=== PATIENT | male | born 1950 | race Asian ===

== ENCOUNTER 2018-02-11 12:15 | Outpatient (CLI) | payer MEDICARE, MEDICAID ==
[~2018-02-11] VITALS: Ht 177.8 cm; Wt 89.8 kg
[~2018-02-11 12:15] MED LIST: ACET-1697 PO; AMLO5TAB2 PO; ASPI-266 PO; HTN MED; HYDR-3876 PO; LISI10TA2 PO; OXYC-12 PO; PRM25T PO
[2018-02-11] MEDS ORDERED: LOSA25TA6 PO (12:27)
[2018-02-11] MEDS ORDERED: TAMS0.4C2 PO (12:27)
== END 2018-02-11 12:35 | disposition home or self-care (01) ==
LOC: PREOP 12:15
PROVIDERS: ATTEND Surgery
DX: Z01.818 Encounter for other preprocedural examination (principal)

== ENCOUNTER 2018-02-17 08:41 | Day surgery (SDC) | payer MEDICARE, MEDICAID ==
[~2018-02-17] VITALS: Ht 177.8 cm; Wt 89.8 kg
[~2018-02-17 08:41] MED LIST changes: +LOSA25TA6 PO; +TAMS0.4C2 PO
[2018-02-17] MEDS ORDERED: NS IV 500 ML 500 ML IV PRN (08:42)
[2018-02-17] MEDS ORDERED: fentaNYL INJECTION 100 MCG/2 ML AMP IVP ONE (08:45)
[2018-02-17] MEDS ORDERED: MIDAZOLAM 2 MG/2 ML (VERSED) VIAL IVP ONE (08:45)
--- OUTSIDE RECORDS SUMMARY | 2018-02-17 08:45 | XMS REPORT | CCD ---
Author Author Kallie Sierra Organization Kallie Sierra MD, [facility] Address [address] [place] [address] Phone Care Team Providers Care Case Packer And Sealer Name Role Phone PP Unavailable CCM Unavailable Summary Purpose Interface Exchange Insurance Providers Payer name Policy type / Coverage type Covered alliance party ID Effective Begin Date Effective End Date WPS Medicare Part B Medicare Part B [id number] 2017 Unknown [facility] Medicare Part B [id number] Unknown Family history Mother Diagnosis Age At Onset Hypertension Unknown Social History Social History Element Codes Description Effective Dates Alcohol history SNOMED CT: 527542676 Never drinks alcohol 01/07/2018 Marital status Unknown Alice Dumont 11/25/2017 Number of children Unknown 3 11/25/2017 Employment Unknown Currently employed 11/25/2017 Allergies, Adverse Reactions, Alerts Substance Reaction Codes Entered Date Inactivated Date Status SULFA (SULFONAMIDES) Unknown 11/25/2017 No Inactive Date Active Past Medical History Illness Codes Condition Status Onset Date Resolved Date Encounter for general adult medical examination without abnormal findings ICD-9: V70.0 ICD-10: Z00.00 Active 01/07/2018 Unknown Encounter for immunization ICD-9: V03.82 ICD-10: Z23 Active 01/07/2018 Unknown Abnormal results of liver function studies ICD-9: 794.8 ICD-10: R94.5 Active 01/02/2018 Unknown Acute bronchitis due to other specified organisms ICD-9: 466.0 ICD-10: J20.8 Active 11/25/2017 Unknown Cough ICD-9: 786.2 ICD-10: R05 Active 11/25/2017 Unknown Cramp and spasm ICD-9 : 729.82 ICD-10: R25.2 Active 12/31/2017 Unknown Essential (primary) hypertension ICD-9: 401.1 ICD-10: I10 Active 11/25/2017 Unknown Gastro-esophageal reflux disease without esophagitis ICD-9: 530.81 ICD-10: K21.9 Active 11/25/2017 Unknown Muscle weakness (generalized) ICD-9: 728.87 ICD-10: M62.81 Active 11/25/2017 Unknown Problems Condition Codes Effective Dates Condition Status Encounter for general adult medical examination without abnormal findings ICD-9: V70.0 ICD-10: Z00.00 01/07/2018 Active Encounter for immunization ICD-9: V03.82 ICD-10: Z23 01/07/2018 Active Abnormal results of liver function studies ICD-9: 794.8 ICD-10: R94.5 01/02/2018 Active Acute bronchitis due to other specified organisms ICD-9: 466.0 ICD-10: J20.8 11/25/2017 Active Cough ICD-9: 786.2 ICD-10: R05 11/25/2017 Active Cramp and spasm ICD-9 : 729.82 ICD-10: R25.2 12/31/2017 Active Essential (primary) hypertension ICD-9: 401.1 ICD-10: I10 11/25/2017 Active Gastro-esophageal reflux disease without esophagitis ICD-9: 530.81 ICD-10: K21.9 11/25/2017 Active Muscle weakness (generalized) ICD-9: 728.87 ICD-10: M62.81 11/25/2017 Active Medications Medication Codes Instructions Start Date Stop Date Status Fill Instructions allopurinol 300 mg tablet RxNorm: 290989 1 Tablet(s) PO QW -BIW 11/25/2017 No Stop Date Active losartan 25 mg tablet RxNorm: 473137 1 Tablet(s) PO QPM 201706/22/2018 Active amoxicillin 500 mg-potassium clavulanate 125 mg tablet RxNorm: 740505 1 Tablet(s) PO TID 11/25/2017 12/01/2017 Inactive Cardura 4 mg tablet RxNorm: 578373 1 Tablet(s) PO QW -BIW No Start Date Active tamsulosin 0.4 mg capsule RxNorm: 889355 1 Capsule(s) PO QW -BIW No Start Date Active allopurinol 300 mg tablet RxNorm: 425815 1 Tablet(s) PO daily No Start Date 11/24/2017 Inactive lisinopril 10 mg tablet RxNorm: 588708 1 Tablet(s) PO daily No Start Date 11/24/2017 Inactive Medication Administered No Medication Administered data Immunizations Vaccine Codes Date Status Pneumococcal (Adult) CVX: 133 01/07/2018 completed Assessments Condition Codes Effective Dates Encounter for general adult medical examination without abnormal findings ICD-10: Z00.00 ICD-9: V70.0 01/07/2018 Encounter for immunization ICD-10: Z23 ICD-9: V03.82 01/07/2018 Abnormal results of liver function studies ICD-10: R94.5 ICD-9: 794.8 01/02/2018 Cramp and spasm ICD-10: R25.2 ICD-9: 729.82 12/31/2017 Essential (primary) hypertension ICD-10: I10 ICD-9: 401.1 12/31/2017 Gastro-esophageal reflux disease without esophagitis ICD-10 : K21.9 ICD-9: 530.81 11/25/2017 Acute bronchitis due to other specified organisms ICD-10: J20.8 ICD-9: 466.0 11/25/2017 Cough ICD-10: R05 ICD-9: 786.2 11/25/2017 Muscle weakness (generalized) ICD-10: M62.81 ICD-9: 728.87 11/25/2017 Reason For Visit Reason For Visit Effective Dates Notes Annual Medicare Wellness Exam 01/07/2018 hypertension 12/31/2017 he reports lower leg cramps at night hypertension 11/25/2017 Results Observation Observation Code Item Item Code Result Date Hepatitis Panel (Abc) 67737 HEPATITIS B SURFACE AG . 02/2018 Hepatitis Panel (Abc) 37427 HEPATITIS B SURFACE AG NEGATIVE 01/03/2018 Hepatitis Panel (Abc) 86009 HEPATITIS B CORE AB, IGM . Hepatitis Panel (Abc) 03430 HEPATITIS B CORE AB, IGM NEGATIVE 01/03/2018 Hepatitis Panel (Abc) 27661 HEPATITIS A AB, IGM . 2017 Hepatitis Panel (Abc) 21401 HEPATITIS A AB, IGM NEGATIVE 02/2018 Hepatitis Panel (Abc) 87728 HEPATITIS C ANTIBODY . 2017 Hepatitis Panel (Abc) 18084 HEPATITIS C ANTIBODY NEGATIVE 02/2018 Cbc With Differential Ord2 WBC 5.44 K/ul 01/01/2018 Cbc With Differential Ord2 RBC 4.92 M/ul 01/01/2018 Cbc With Differential Ord2 HGB 15.2 g/dl 01/01/2018 Cbc With Differential Ord2 Neut% 51.1 % 01/01/2018 Cbc With Differential Ord2 HCT 44.3 % 01/01/2018 Cbc With Differential Ord2 MCV 90.0 fl 01/01/2018 Cbc With Differential Ord2 Lymph% 34.7 % 01/01/2018 Cbc With Differential Ord2 MCH 30.9 pg 01/01/2018 Cbc With Differential Ord2 [place]% 10.7 % 01/01/2018 Cbc With Differential Ord2 MCHC 34.3 pg 01/01/2018 Cbc With Differential Ord2 Eos% 2.9 % 01/01/2018 Cbc With Differential Ord2 PLT 237 K/ul 01/01/2018 Cbc With Differential Ord2 Baso% 0.6 % 01/01/2018 Cbc With Differential Ord2 RDW 14.1 % 01/01/2018 Cbc With Differential Ord2 Neut ABS# 2.78 K/ul 01/01/2018 Cbc With Differential Ord2 Lymph ABS# 1.89 K/ul 01/01/2018 Cbc With Differential Ord2 [place] ABS# 0.6 K/ul 01/01/2018 Cbc With Differential Ord2 Eos ABS# 0.2 K/ul 01/01/2018 Cbc With Differential Ord2 Baso ABS# 0.0 K/ul 01/01/2018 Lipid Ord30 CHOL 203 mg/dL 01/01/2018 Lipid Ord30 HDL 46.0 mg/dl 01/01/2018 Lipid Ord30 TRIG 216 mg/dL 01/01/2018 Lipid Ord30 LDL 114 mg/dL 01/01/2018 Lipid Ord30 C/HDL 4.4 Ratio 01/01/2018 Comp Metabolic Glp679 NA 141 mEq/L 01/01/2018 Comp Metabolic Xpc368 K 4.6 mEq/L 01/01/2018 Comp Metabolic Tqh926 CL 107 mEq/L 01/01/2018 Comp Metabolic Oow323 CO2 26.0 mEq/L 01/01/2018 Comp Metabolic Gvq157 ANION GAP 13 01/01/2018 Comp Metabolic Hmg536 GLUCOSE 123 mg/dL 01/01/2018 Comp Metabolic Otb044 Creat 1.0 mg/dL 01/01/2018 Comp Metabolic Vpq771 eGFR 76 ml/min/1.73m2 01/01/2018 Comp Metabolic Bga768 BUN 20 mg/dL 01/01/2018 Comp Metabolic Jyt470 B/C Ratio 19.2 Ratio 01/01/2018 Comp Metabolic Xka445 CALCIUM 9.8 mg/dL 01/01/2018 Comp Metabolic Gmi431 ALK PHOS 59 U/L 01/01/2018 Comp Metabolic Ahg233 AST(SGOT) 49 U/L 01/01/2018 Comp Metabolic Fyx125 ALT(SGPT) 69 U/L 01/01/2018 Comp Metabolic Bep734 BILI T 0.6 mg/dL 01/01/2018 Comp Metabolic Jtf245 ALBUMIN 4.3 g/dL 01/01/2018 Comp Metabolic Crr659 TPRO 7.4 g/dL 01/01/2018 Comp Metabolic Ylo843 GLOB 3.1 g/dL 01/01/2018 Comp Metabolic Ybh267 A/G Ratio 1.4 Ratio 01/01/2018 Comp Metabolic Yec748 Osmo 285 mOsmo 01/01/2018 Tsh Ord6 TSH (3rd IS) 1.74 uIU/mL 01/01/2018 Total Psa Ord10 PSA 0.61 ng/mL 01/01/2018 Review of Systems System Result Effective Dates Constitutional No recent illness 2017 Constitutional No chills 01/07/2018 Constitutional No fatigue 01/07/2018 Constitutional No fever 01/07/2018 Constitutional No insomnia 01/07/2018 Constitutional No malaise 01/07/2018 Eyes No vision change 01/07/2018 Ears/Nose/Throat/Neck No dizziness 2017 Ears/Nose/Throat/Neck No dysphagia 2017 Ears/Nose/Throat/Neck No headache 2017 Ears/Nose/Throat/Neck No nasal allergies 01/07/2018 Ears/Nose/Throat/Neck No sore throat Ears/Nose/Throat/Neck No sinus congestion 01/07/2018 Cardiovascular No dyspnea 01/07/2018 Cardiovascular No edema 01/07/2018 Cardiovascular No exercise intolerance Cardiovascular No fatigue 01/07/2018 Respiratory No chest tightness 2017 Respiratory No dyspnea 01/07/2018 Gastrointestinal No abdominal pain 2017 Gastrointestinal No constipation 2017 Gastrointestinal No diarrhea 01/07/2018 Gastrointestinal No nausea 01/07/2018 Gastrointestinal No vomiting 01/07/2018 Genitourinary/Nephrology No dysuria 01/07 Genitourinary/Nephrology No nocturia Genitourinary/Nephrology No urinary incontinence 01/07/2018 Musculoskeletal No stiffness 01/07/2018 Musculoskeletal No swelling 01/07/2018 Musculoskeletal No muscle weakness 2017 Musculoskeletal myalgias 01/07/2018 Dermatologic No rash 01/07/2018 Dermatologic No sores 01/07/2018 Neurologic No dizziness 01/07/2018 Neurologic No headache 01/07/2018 Neurologic No neck pain 01/07/2018 Neurologic No syncope 01/07/2018 Psychiatric No anxiety 01/07/2018 Psychiatric No depression 01/07/2018 Constitutional No anorexia 01/07/2018 Constitutional No night sweats 2017 Constitutional No diaphoresis 01/07/2018 Constitutional No weight loss 01/07/2018 Constitutional No weight gain 01/07/2018 Constitutional recent illness 12/31/2017 Constitutional No chills 12/31/2017 Constitutional No fatigue 12/31/2017 Constitutional No fever 12/31/2017 Constitutional No insomnia 12/31/2017 Constitutional No malaise 12/31/2017 Eyes No vision change 12/31/2017 Ears/Nose/Throat/Neck No dizziness 2017 Ears/Nose/Throat/Neck No dysphagia 2017 Ears/Nose/Throat/Neck No headache 2017 Ears/Nose/Throat/Neck No nasal allergies 12/31/2017 Ears/Nose/Throat/Neck No sore throat 11/2017 Ears/Nose/Throat/Neck No sinus congestion 12/31/2017 Cardiovascular No dyspnea 12/31/2017 Cardiovascular No edema 12/31/2017 Cardiovascular No exercise intolerance Cardiovascular No fatigue 12/31/2017 Respiratory No chest tightness 2017 Respiratory cough 12/31/2017 Respiratory No dyspnea 12/31/2017 Gastrointestinal No abdominal pain 2017 Gastrointestinal No constipation 2017 Gastrointestinal No diarrhea 12/31/2017 Gastrointestinal gastroesophageal reflux 12/31/2017 Gastrointestinal No nausea 12/31/2017 Gastrointestinal No vomiting 12/31/2017 Genitourinary/Nephrology No dysuria 12/31 Genitourinary/Nephrology No nocturia 11/2017 Genitourinary/Nephrology No urinary incontinence 12/31/2017 Musculoskeletal No stiffness 12/31/2017 Musculoskeletal No swelling 12/31/2017 Musculoskeletal No muscle weakness 2017 Musculoskeletal myalgias 12/31/2017 Dermatologic No rash 12/31/2017 Dermatologic No sores 12/31/2017 Neurologic No dizziness 12/31/2017 Neurologic No headache 12/31/2017 Neurologic No neck pain 12/31/2017 Neurologic No syncope 12/31/2017 Psychiatric No anxiety 12/31/2017 Psychiatric No depression 12/31/2017 Neurologic memory loss 12/31/2017 Constitutional recent illness 11/25/2017 Constitutional No chills 11/25/2017 Constitutional No fatigue 11/25/2017 Constitutional No fever 11/25/2017 Constitutional No insomnia 11/25/2017 Constitutional No malaise 11/25/2017 Eyes No vision change 11/25/2017 Ears/Nose/Throat/Neck No dizziness 2017 Ears/Nose/Throat/Neck No dysphagia 2017 Ears/Nose/Throat/Neck No headache 2017 Ears/Nose/Throat/Neck No nasal allergies 11/25/2017 Ears/Nose/Throat/Neck No sore throat 06/2017 Ears/Nose/Throat/Neck No sinus congestion 11/25/2017 Cardiovascular No dyspnea 11/25/2017 Cardiovascular No edema 11/25/2017 Cardiovascular No exercise intolerance Cardiovascular No fatigue 11/25/2017 Respiratory No chest tightness 2017 Respiratory cough 11/25/2017 Respiratory No dyspnea 11/25/2017 Gastrointestinal No abdominal pain 2017 Gastrointestinal No constipation 2017 Gastrointestinal No diarrhea 11/25/2017 Gastrointestinal gastroesophageal reflux 11/25/2017 Gastrointestinal No nausea 11/25/2017 Gastrointestinal No vomiting 11/25/2017 Genitourinary/Nephrology No dysuria 11/25 Genitourinary/Nephrology No nocturia 06/2017 Genitourinary/Nephrology No urinary incontinence 11/25/2017 Musculoskeletal No stiffness 11/25/2017 Musculoskeletal No swelling 11/25/2017 Musculoskeletal No muscle weakness 2017 Musculoskeletal myalgias 11/25/2017 Dermatologic No rash 11/25/2017 Dermatologic No sores 11/25/2017 Neurologic No dizziness 11/25/2017 Neurologic No headache 11/25/2017 Neurologic No neck pain 11/25/2017 Neurologic No syncope 11/25/2017 Psychiatric No anxiety 11/25/2017 Psychiatric No depression 11/25/2017 Physical Exam Exam Name System Name Item Name Status Result Effective Dates Notes Full Exam - General 1994 Constitutional general appearance Development: well developed 01/07/2018 None Full Exam - General 1994 Constitutional general appearance Development: appears stated age 0801/07/2018 None Full Exam - General 1994 Constitutional general appearance Hygiene/Attention to Grooming: good hygiene 01/07/2018 None Full Exam - General 1994 Eyes conjunctiva /eyelids Overall: conjunctiva clear 01/07/2018 None Full Exam - General 1994 Eyes conjunctiva /eyelids Overall: cornea clear 01/07/2018 None Full Exam - General 1994 Eyes conjunctiva /eyelids Overall: eyelids normal 01/07/2018 None Full Exam - General 1994 Eyes pupils and irises Overall: pupils equal, round, reactive to light and accomodation 01/07/2018 None Full Exam - General 1994 Ears/Nose/Throat otoscopic exam Overall: external auditory canals clear 01/07/2018 None Full Exam - General 1994 Ears/Nose/Throat otoscopic exam Overall: tympanic membranes clear 01/07/2018 None Full Exam - General 1994 Ears/Nose/Throat lips/teeth/gingiva Overall: benign lips 01/07/2018 None Full Exam - General 1994 Ears/Nose/Throat lips/teeth/gingiva Overall: normal dentition 01/07/2018 None Full Exam - General 1994 Ears/Nose/Throat oral cavity/pharynx/larynx Overall: oral mucosa clear 01/07/2018 None Full Exam - General 1994 Ears/Nose/Throat oral cavity/pharynx/larynx Overall: oropharyngeal mucosa clear 01/07/2018 None Full Exam - General 1994 Ears/Nose/Throat oral cavity/pharynx/larynx Overall: hypopharynx benign 01/07/2018 None Full Exam - General 1994 Ears/Nose/Throat oral cavity/pharynx/larynx Overall: no masses 01/07/2018 None Full Exam - General 1994 Respiratory auscultation Right lower lung field: bronchial 01/07/2018 wheeze Full Exam - General 1994 Respiratory respiratory effort/rhythm Overall: no retractions 01/07/2018 None Full Exam - General 1994 Respiratory respiratory effort/rhythm Overall: normal rate 01/07/2018 None Full Exam - General 1994 Cardiovascular extremities Overall: no clubbing 01/07/2018 None Full Exam - General 1994 Cardiovascular auscultation of heart Overall: regular rate 01/07/2018 None Full Exam - General 1994 Cardiovascular auscultation of heart Overall: normal heart sounds 01/07/2018 None Full Exam - General 1994 Lymphatic neck nodes Overall: anterior cervical chain benign 01/07/2018 None Full Exam - General 1994 Lymphatic neck nodes Overall: posterior cervical chain benign 01/07/2018 None Full Exam - General 1994 Musculoskeletal spine, ribs and pelvis Overall: spine benign 01/07/2018 None Full Exam - General 1994 Musculoskeletal spine, ribs and pelvis Overall: sacroiliac joint benign 01/07/2018 None Full Exam - General 1994 Musculoskeletal spine, ribs and pelvis Overall: good posture 01/07/2018 None Full Exam - General 1994 Musculoskeletal head and neck Overall: head atraumatic 01/07/2018 None Full Exam - General 1994 Musculoskeletal head and neck Overall: cervical spine benign 01/07/2018 None Full Exam - General 1994 Neurologic cranial nerves Overall: crainial nerves 2 - 12 grossly intact 01/07/2018 None Full Exam - General 1994 Psychiatric orientation/consciousness Overall: oriented to person, place and time 01/07/2018 None Full Exam - General 1994 Psychiatric mood and affect Overall: normal mood and affect 01/07/2018 None Full Exam - General 1994 Constitutional general appearance Development: well developed 12/31/2017 None Full Exam - General 1994 Constitutional general appearance Development: appears stated age 0812/31/2017 None Full Exam - General 1994 Constitutional general appearance Hygiene/Attention to Grooming: good hygiene 12/31/2017 None Full Exam - General 1994 Eyes conjunctiva /eyelids Overall: conjunctiva clear 12/31/2017 None Full Exam - General 1994 Eyes conjunctiva /eyelids Overall: cornea clear 12/31/2017 None Full Exam - General 1994 Eyes conjunctiva /eyelids Overall: eyelids normal 12/31/2017 None Full Exam - General 1994 Eyes pupils and irises Overall: pupils equal, round, reactive to light and accomodation 12/31/2017 None Full Exam - General 1994 Ears/Nose/Throat otoscopic exam Overall: external auditory canals clear 12/31/2017 None Full Exam - General 1994 Ears/Nose/Throat otoscopic exam Overall: tympanic membranes clear 12/31/2017 None Full Exam - General 1994 Ears/Nose/Throat lips/teeth/gingiva Overall: benign lips 12/31/2017 None Full Exam - General 1994 Ears/Nose/Throat lips/teeth/gingiva Overall: normal dentition 12/31/2017 None Full Exam - General 1995 Ears/Nose/Throat oral cavity/pharynx/larynx Overall: oral mucosa clear 12/31/2017 None Full Exam - General 1995 Ears/Nose/Throat oral cavity/pharynx/larynx Overall: oropharyngeal mucosa clear 12/31/2017 None Full Exam - General 1995 Ears/Nose/Throat oral cavity/pharynx/larynx Overall: hypopharynx benign 12/31/2017 None Full Exam - General 1994 Ears/Nose/Throat oral cavity/pharynx/larynx Overall: no masses 12/31/2017 None Full Exam - General 1994 Respiratory auscultation Right lower lung field: bronchial 12/31/2017 wheeze Full Exam - General 1994 Respiratory respiratory effort/rhythm Overall: no retractions 12/31/2017 None Full Exam - General 1994 Respiratory respiratory effort/rhythm Overall: normal rate 12/31/2017 None Full Exam - General 1994 Cardiovascular extremities Overall: no clubbing 12/31/2017 None Full Exam - General 1994 Cardiovascular auscultation of heart Overall: regular rate 12/31/2017 None Full Exam - General 1994 Cardiovascular auscultation of heart Overall: normal heart sounds 12/31/2017 None Full Exam - General 1994 Lymphatic neck nodes Overall: anterior cervical chain benign 12/31/2017 None Full Exam - General 1994 Lymphatic neck nodes Overall: posterior cervical chain benign 12/31/2017 None Full Exam - General 1994 Musculoskeletal spine, ribs and pelvis Overall: spine benign 12/31/2017 None Full Exam - General 1994 Musculoskeletal spine, ribs and pelvis Overall: sacroiliac joint benign 12/31/2017 None Full Exam - General 1994 Musculoskeletal spine, ribs and pelvis Overall: good posture 12/31/2017 None Full Exam - General 1994 Musculoskeletal head and neck Overall: head atraumatic 12/31/2017 None Full Exam - General 1994 Musculoskeletal head and neck Overall: cervical spine benign 12/31/2017 None Full Exam - General 1994 Neurologic cranial nerves Overall: crainial nerves 2 - 12 grossly intact 12/31/2017 None Full Exam - General 1994 Psychiatric orientation/consciousness Overall: oriented to person, place and time 12/31/2017 None Full Exam - General 1994 Psychiatric mood and affect Overall: normal mood and affect 12/31/2017 None Full Exam - General 1994 Constitutional general appearance Development: well developed 11/25/2017 None Full Exam - General 1994 Constitutional general appearance Development: appears stated age 0711/25/2017 None Full Exam - General 1994 Constitutional general appearance Hygiene/Attention to Grooming: good hygiene 11/25/2017 None Full Exam - General 1994 Eyes conjunctiva /eyelids Overall: conjunctiva clear 11/25/2017 None Full Exam - General 1994 Eyes conjunctiva /eyelids Overall: cornea clear 11/25/2017 None Full Exam - General 1994 Eyes conjunctiva /eyelids Overall: eyelids normal 11/25/2017 None Full Exam - General 1994 Eyes pupils and irises Overall: pupils equal, round, reactive to light and accomodation 11/25/2017 None Full Exam - General 1994 Ears/Nose/Throat otoscopic exam Overall: external auditory canals clear 11/25/2017 None Full Exam - General 1994 Ears/Nose/Throat otoscopic exam Overall: tympanic membranes clear 11/25/2017 None Full Exam - General 1994 Ears/Nose/Throat lips/teeth/gingiva Overall: benign lips 11/25/2017 None Full Exam - General 1994 Ears/Nose/Throat lips/teeth/gingiva Overall: normal dentition 11/25/2017 None Full Exam - General 1994 Ears/Nose/Throat oral cavity/pharynx/larynx Overall: oral mucosa clear 11/25/2017 None Full Exam - General 1995 Ears/Nose/Throat oral cavity/pharynx/larynx Overall: oropharyngeal mucosa clear 11/25/2017 None Full Exam - General 1994 Ears/Nose/Throat oral cavity/pharynx/larynx Overall: hypopharynx benign 11/25/2017 None Full Exam - General 1994 Ears/Nose/Throat oral cavity/pharynx/larynx Overall: no masses 11/25/2017 None Full Exam - General 1994 Respiratory respiratory effort/rhythm Overall: no retractions 11/25/2017 None Full Exam - General 1994 Respiratory respiratory effort/rhythm Overall: normal rate 11/25/2017 None Full Exam - General 1994 Cardiovascular extremities Overall: no clubbing 11/25/2017 None Full Exam - General 1994 Cardiovascular auscultation of heart Overall: regular rate 11/25/2017 None Full Exam - General 1994 Cardiovascular auscultation of heart Overall: normal heart sounds 11/25/2017 None Full Exam - General 1994 Abdomen abdominal exam Overall: no tenderness 11/25/2017 None Full Exam - General 1994 Abdomen abdominal exam Overall: normal bowel sounds 11/25/2017 None Full Exam - General 1994 Lymphatic neck nodes Overall: anterior cervical chain benign 11/25/2017 None Full Exam - General 1994 Lymphatic neck nodes Overall: posterior cervical chain benign 11/25/2017 None Full Exam - General 1994 Musculoskeletal spine, ribs and pelvis Overall: spine benign 11/25/2017 None Full Exam - General 1994 Musculoskeletal spine, ribs and pelvis Overall: sacroiliac joint benign 11/25/2017 None Full Exam - General 1994 Musculoskeletal spine, ribs and pelvis Overall: good posture 11/25/2017 None Full Exam - General 1994 Musculoskeletal head and neck Overall: head atraumatic 11/25/2017 None Full Exam - General 1994 Musculoskeletal head and neck Overall: cervical spine benign 11/25/2017 None Full Exam - General 1994 Integument inspection of skin Overall: few scattered moles, no gross abnormalities 11/25/2017 None Full Exam - General 1994 Neurologic deep tendon reflexes Overall: deep tendon reflexes intact 11/25/2017 None Full Exam - General 1994 Neurologic cranial nerves Overall: crainial nerves 2 - 12 grossly intact 11/25/2017 None Full Exam - General 1994 Psychiatric orientation/consciousness Overall: oriented to person, place and time 11/25/2017 None Full Exam - General 1994 Psychiatric mood and affect Overall: normal mood and affect 11/25/2017 None Full Exam - General 1994 Respiratory auscultation Right lower lung field: bronchial 11/25/2017 wheeze Procedures Procedure Codes Date PPPS, SUBSEQ VISIT CPT -4: G0439 01/07/2018 ADMIN PNEUMOCOCCAL VACCINE SNOMED CT: 70840644 CPT-4: G0009 01/07/2018 PNEUMOCOCCAL VACC [address]: 66153953 CPT-4: 11833 01/07/2018 Vital Signs Date Vital 01/07/2018 Blood Pressure 1: 148/86 Code : 8480-6 BMI: 28.6 Code : 58578-2 Heart Rate 1 : 71 bpm Height: 5'10" SpO2: 98% Waist Measure (cm): 91 cm Weight: 199 lbs 12/31/2017 Blood Pressure 1: 138/80 Code : 8480-6 BMI: 28.4 Code : 87593-2 Heart Rate 1 : 74 bpm Height: 5'10" SpO2: 95% Weight: 198 lbs 11/25/2017 Blood Pressure 1: 144/80 Code : 8480-6 BMI: 28.4 Code : 69244-7 Heart Rate 1 : 60 bpm Height: 5'10" SpO2: 97% Weight: 198 lbs Functional Status No Functional Status data History of Present Illness Symptom Name Status Result Effective Date Notes Annual Medicare Wellness Exam Alcohol Use does not drink any alcohol 01/07/2018 None Annual Medicare Wellness Exam Aspirin Use no 01/07/2018 None Annual Medicare Wellness Exam Blood Glucose (self reported) desireable (below 100) 01/07/2018 None Annual Medicare Wellness Exam Blood Pressure (self reported ) diagnosed with hypertension 01/07/2018 None Annual Medicare Wellness Exam Cholesterol (self reported) diagnosed with elevated cholesterol 2017 None Annual Medicare Wellness Exam Hemaglobin A-1C (self reported ) never checked 01/07/2018 None Annual Medicare Wellness Exam Depression (last 6 months) almost never 01/07/2018 None Annual Medicare Wellness Exam Depression or Hopelessness almost never 01/07/2018 None Annual Medicare Wellness Exam Describe Your Health excellent 01/07/2018 None Annual Medicare Wellness Exam Exercise Habits does not exercise 01/07/2018 None Annual Medicare Wellness Exam Handling Stress usually sigifredo effectively 01/07/2018 None Annual Medicare Wellness Exam Hours of Sleep 7-8 01/07/2018 None Annual Medicare Wellness Exam Interaction with Friends no 01/07/2018 None Annual Medicare Wellness Exam Interests & Pleasure almost never 01/07/2018 None Annual Medicare Wellness Exam Life Satisfaction very satisfied 01/07/2018 None Annual Medicare Wellness Exam Motor Vehicle Safety always fastens seat belt: yes 01/07/2018 None Annual Medicare Wellness Exam Motor Vehicle Safety drives after drinking: no 01/07/2018 None Annual Medicare Wellness Exam Motor Vehicle Safety rides with someone who has been drinking: no 01/07 None Annual Medicare Wellness Exam Smoking and Tobacco Use non smoker 01/07/2018 None Annual Medicare Wellness Exam Social & Emotional Support always 01/07/2018 None Annual Medicare Wellness Exam Stress almost never 01/07/2018 None Annual Medicare Wellness Exam Sun Exposure protects skin when outdoors: no 01/07/2018 None Annual Medicare Wellness Exam Nutrition servings of fried food / high fat foods per day: 0-1 2017 None Annual Medicare Wellness Exam Nutrition servings of high fiber / whole grain per day: 3 01/07/2018 None Annual Medicare Wellness Exam Nutrition servings of vegetables / fruit per day: 1 01/07/2018 None hypertension Onset and Resolution ongoing 12/31/2017 None hypertension Onset of Symptom during adulthood 12/31/2017 None hypertension Blood Pressure Values patient checking blood pressure at home - did not bring in readings 12/31/2017 None hypertension Alleviating Factors medication 12/31/2017 None hypertension Pertinent Findings Denies dizziness 12/31/2017 None hypertension Pertinent Findings Denies dyspnea 12/31/2017 None hypertension Pertinent Findings Denies edema 12/31/2017 None myalgias Location on both legs 12/31/2017 None myalgias Quality cramping 12/31/2017 None myalgias Quality intermittent 12/31/2017 None myalgias Onset and Resolution ongoing 12/31/2017 None myalgias Onset of Symptom 7-8 months ago 12/31/2017 None myalgias Triggers no known associated factors 12/31/2017 None myalgias Pertinent Findings muscle tenderness 12/31/2017 None hypertension Onset and Resolution ongoing 11/25/2017 None hypertension Onset of Symptom during adulthood 11/25/2017 None hypertension Blood Pressure Values patient checking blood pressure at home - did not bring in readings 11/25/2017 None hypertension Alleviating Factors medication 11/25/2017 None hypertension Pertinent Findings Denies dizziness 11/25/2017 None hypertension Pertinent Findings Denies dyspnea 11/25/2017 None hypertension Pertinent Findings Denies edema 11/25/2017 None myalgias Location on both legs 11/25/2017 None myalgias Quality intermittent 11/25/2017 None myalgias Quality cramping 11/25/2017 None myalgias Onset and Resolution ongoing 11/25/2017 None myalgias Onset of Symptom 7-8 months ago 11/25/2017 None myalgias Triggers no known associated factors 11/25/2017 None cough Quality acute None cough Quality intermittent 11/25/2017 None cough Quality improving 11/25/2017 None cough Quality productive 11/25/2017 None cough Onset and Resolution ongoing 11/25/2017 None cough Onset of Symptom 3 months ago 11/25/2017 None cough Pertinent Findings Denies fever 11/25/2017 None cough Pertinent Findings sputum production 11/25/2017 None Advance Directives No Advance Directive data Encounters Encounter Performer Location Codes Date (50250) 37914 EST. PATIENT, LEVEL III Diagnosis: Essential (primary) hypertension[ICD10: I10] Diagnosis: Cramp and spasm[ICD10: R25.2] [facility] CPT- 4: 84260 12/31/2017 ([id number]) OFFICE VISIT, NEW - LEVEL 4 Diagnosis: Essential (primary) hypertension[ICD10: I10] Diagnosis: Cough[ICD10: R05] Diagnosis: Muscle weakness (generalized)[ICD10: M62.81] Diagnosis: Acute bronchitis due to other specified organisms[ICD10: J20.8] Diagnosis: Gastro-esophageal reflux disease without esophagitis[ICD10: K21.9] Kallie Sierra MD, [facility] CPT-4: 91221 11/25/2017 Plan of Care Planned Activity Notes Codes Status Date Appointment: hSilpi Wayne WPtel: [phone] [facility] - Annual Wellness Visit 01/07/2018 Patient Education: Patient Medication Summary Completed 01/07/2018 Care Plan: Referral Order SNOMED-CT : [id number] Pending 01/07/2018 Patient Education: Patient Medication Summary Completed 01/02/2018 Appointment: Kallie Sierra WPtel: [address] [place], [place] [phone] (15 min) Moderate 12/31/2017 Patient Education: Patient Medication Summary Completed 12/31/2017 Appointment: Kallie Sierra WPtel: [address] [place], [place] [phone] New Patient 11/25/2017 Patient Education: Patient Medication Summary Completed 11/25/2017 Appointment: Kallie Sierra WPtel: [facility] New Patient 07/03/2017 Referral: Rahul Referral Appointment Requested Referral: Rahul 01/08 Referral info faxed. They will call the patient with appt info Appointment Requested Instructions No Instructions
--- OUTSIDE RECORDS SUMMARY | 2018-02-17 08:46 | XMS REPORT | CCD ---
Author Author Kallie Sierra Organization Kallie Sierra MD, [facility] Address [address] [place] [address] Phone Care Team Providers Care [employer] Worker Name Role Phone PP Unavailable CCM Unavailable Summary Purpose Interface Exchange Insurance Providers Payer name Policy type / Coverage type Covered libertarian ID Effective Begin Date Effective End Date WPS Medicare Part B Medicare Part B [id number] 2017 Unknown [facility] Medicare Part B [id number] Unknown Family history Mother Diagnosis Age At Onset Hypertension Unknown Social History Social History Element Codes Description Effective Dates Alcohol history SNOMED CT: 051288440 Never drinks alcohol 01/07/2018 Marital status Unknown [...] Fill Instructions allopurinol 300 mg tablet RxNorm: 828427 1 Tablet(s) PO QW -BIW 11/25/2017 No Stop Date Active losartan 25 mg tablet RxNorm: 363756 1 Tablet(s) PO QPM 201706/22/2018 Active amoxicillin 500 mg-potassium clavulanate 125 mg tablet RxNorm: 614351 1 Tablet(s) PO TID 11/25/2017 12/01/2017 Inactive Cardura 4 mg tablet RxNorm: 863749 1 Tablet(s) PO QW -BIW No Start Date Active tamsulosin 0.4 mg capsule RxNorm: 913492 1 Capsule(s) PO QW -BIW No Start Date Active allopurinol 300 mg tablet RxNorm: 970772 1 Tablet(s) PO daily No Start Date 11/24/2017 Inactive lisinopril 10 mg tablet RxNorm: 014212 1 Tablet(s) PO daily No Start Date 11/24/2017 Inactive Medication Administered No Medication Administered data Immunizations No Immunization data Assessments Condition Codes Effective Dates Encounter for [...] Item Code Result Date Hepatitis Panel (Abc) 55595 HEPATITIS B SURFACE AG . 02/2018 Hepatitis Panel (Abc) 58629 HEPATITIS B SURFACE AG NEGATIVE 01/03/2018 Hepatitis Panel (Abc) 17251 HEPATITIS B CORE AB, IGM . Hepatitis Panel (Abc) 05061 HEPATITIS B CORE AB, IGM NEGATIVE 01/03/2018 Hepatitis Panel (Abc) 06408 HEPATITIS A AB, IGM . 2017 Hepatitis Panel (Abc) 68235 HEPATITIS A AB, IGM NEGATIVE 02/2018 Hepatitis Panel (Abc) 59342 HEPATITIS C ANTIBODY . 2017 Hepatitis Panel (Abc) 73417 HEPATITIS C ANTIBODY NEGATIVE 02/2018 Cbc With [...] 30.9 pg 01/01/2018 Cbc With Differential Ord2 [place]% 10.7 % 01/01/2018 Cbc With Differential Ord2 [...] 1.89 K/ul 01/01/2018 Cbc With Differential Ord2 [place] ABS# 0.6 K/ul 01/01/2018 Cbc With Differential Ord2 Eos ABS# 0.2 K/ul 01/01/2018 Cbc With Differential Ord2 Baso ABS# 0.0 K/ul 01/01/2018 Lipid Ord30 CHOL 203 mg/dL 01/01/2018 Lipid Ord30 HDL 46.0 mg/dl 01/01/2018 Lipid Ord30 TRIG 216 mg/dL 01/01/2018 Lipid Ord30 LDL 114 mg/dL 01/01/2018 Lipid Ord30 C/HDL 4.4 Ratio 01/01/2018 Comp Metabolic Hbb714 NA 141 mEq/L 01/01/2018 Comp Metabolic Yuj901 K 4.6 mEq/L 01/01/2018 Comp Metabolic Lwc020 CL 107 mEq/L 01/01/2018 Comp Metabolic Ksi079 CO2 26.0 mEq/L 01/01/2018 Comp Metabolic Yps163 ANION GAP 13 01/01/2018 Comp Metabolic Vmg311 GLUCOSE 123 mg/dL 01/01/2018 Comp Metabolic Ltc109 Creat 1.0 mg/dL 01/01/2018 Comp Metabolic Vmb656 eGFR 76 ml/min/1.73m2 01/01/2018 Comp Metabolic Rbi004 BUN 20 mg/dL 01/01/2018 Comp Metabolic Ert165 B/C Ratio 19.2 Ratio 01/01/2018 Comp Metabolic Kbu452 CALCIUM 9.8 mg/dL 01/01/2018 Comp Metabolic Dxo233 ALK PHOS 59 U/L 01/01/2018 Comp Metabolic Gyo352 AST(SGOT) 49 U/L 01/01/2018 Comp Metabolic Kgx581 ALT(SGPT) 69 U/L 01/01/2018 Comp Metabolic Tjm317 BILI T 0.6 mg/dL 01/01/2018 Comp Metabolic Vrc975 ALBUMIN 4.3 g/dL 01/01/2018 Comp Metabolic Ygw503 TPRO 7.4 g/dL 01/01/2018 Comp Metabolic Uii089 GLOB 3.1 g/dL 01/01/2018 Comp Metabolic Gux997 A/G Ratio 1.4 Ratio 01/01/2018 Comp Metabolic Twr940 Osmo 285 mOsmo 01/01/2018 Tsh Ord6 TSH [...] Effective Dates Notes Full Exam - General 1995 Constitutional general appearance Development: well developed 01/07/2018 [...] dentition 12/31/2017 None Full Exam - General 1994 Ears/Nose/Throat oral cavity/pharynx/larynx Overall: oral mucosa clear 12/31/2017 None Full Exam - General 1994 Ears/Nose/Throat oral cavity/pharynx/larynx Overall: oropharyngeal mucosa clear 12/31/2017 None Full Exam - General 1994 Ears/Nose/Throat oral cavity/pharynx/larynx Overall: hypopharynx benign 12/31/2017 [...] benign 11/25/2017 None Full Exam - General 1995 Musculoskeletal spine, ribs and pelvis Overall: spine benign 11/25/2017 None Full Exam - General 1994 Musculoskeletal spine, ribs and pelvis Overall: sacroiliac joint benign 11/25/2017 None Full Exam - General 1995 Musculoskeletal spine, ribs and pelvis Overall: good posture 11/25/2017 None Full Exam - General 1995 Musculoskeletal head and neck Overall: head atraumatic [...] G0439 01/07/2018 ADMIN PNEUMOCOCCAL VACCINE SNOMED CT: 47735129 CPT-4: G0009 01/07/2018 PNEUMOCOCCAL VACC [address]: 29607305 CPT-4: 88133 01/07/2018 Vital Signs Date Vital 01/07/2018 Blood Pressure 1: 148/86 Code : 8480-6 BMI: 28.6 Code : 59333-9 Heart Rate 1 : 71 bpm Height: 5'10" SpO2: 98% Waist Measure (cm): 91 cm Weight: 199 lbs 12/31/2017 Blood Pressure 1: 138/80 Code : 8480-6 BMI: 28.4 Code : 88200-2 Heart Rate 1 : 74 bpm Height: 5'10" SpO2: 95% Weight: 198 lbs 11/25/2017 Blood Pressure 1: 144/80 Code : 8480-6 BMI: 28.4 Code : 34953-6 Heart Rate 1 : 60 bpm Height: [...] data Encounters Encounter Performer Location Codes Date (12027) 84612 EST. PATIENT, LEVEL III Diagnosis: Essential (primary) hypertension[ICD10: I10] Diagnosis: Cramp and spasm[ICD10: R25.2] [facility] CPT- 4: 91701 12/31/2017 (72290) OFFICE VISIT, NEW - LEVEL 4 Diagnosis: Essential (primary) hypertension[ICD10: I10] Diagnosis: Cough[ICD10: R05] Diagnosis: Muscle weakness (generalized)[ICD10: M62.81] Diagnosis: Acute bronchitis due to other specified organisms[ICD10: J20.8] Diagnosis: Gastro-esophageal reflux disease without esophagitis[ICD10: K21.9] [facility] CPT-4: 71349 11/25/2017 Plan of Care Planned Activity Notes Codes Status Date Visit Plan: Medicare Exam - today we discussed the patients past history, immunizations, preventative exams/evaluations - colonoscopy, fecal occult blood testing, routine labs for renal function, glucose, cholesterol, osteoporosis evaluations, cardiovascular testing and cancer screenings. We have also discussed mental health and the signs/symptoms of depression. The patient was advised of home safety evaluations and the need to make sure that as the aging process continues, we need to be aware of different ways to make the home a safer place to reside. The patient has also been counseled that exercise is necessary - and of utmost importance as we age to help decrease fall risk and to maintain independence in the home. Today we discussed the need for the patient to create paperwork for Advanced directives as well as for the patient to provide this office with a copy of her DOPA paperwork for health care surrogate. 01/07/2018 Patient Education: Patient Medication Summary Completed 01/07/2018 Care Plan: Referral Order SNOMED-CT : 037654190 Pending 01/07/2018 Patient Education: Patient Medication Summary Completed 01/02/2018 Visit Plan: Hypertension - well controlled - continue with current medications, continue with no added salt diet. Pt has been encouraged to exercise daily. The pt has been advised to call the office if there are any acute concerns about change in blood pressure readings at home. Muscle cramps at bedtime - recommended pt to start on tonic water at bedtime to see if this helps to decrease cramping of legs. 12/31/2017 Appointment: Kallie Sierra WPtel: [address] [place], [place] [phone] (15 min) Moderate 12/31/2017 Patient Education: Patient Medication Summary Completed 12/31/2017 Visit Plan: Hypertension - uncontrolled - the patient's medications have been modified as documented in the visit note. The patient has been counseled to cut back on salt in diet for a no added salt diet, low fat diet, start an exercise program with low weight bearing exercises and higher aerobic activity for heart health. The patient is to check blood pressure readings as an outpatient and either fax, call, or email the readings to the office next week for practitioner to review. The pt is to call for acute concerns. Cough - stop lisinopril due to cough - start on losartan - call if cough not improved. Muscle spasms - use tonic water for prn muscle spasms. Bronchitis - acute case of bronchitis identified. Pt has been given antibiotics , breathing treatments as appropriate, and pt has been instructed to call if symptoms are not improved, or if symptoms acutely worsen. take the augmentin 500mg three times daily x 7 days Esophageal Reflux - the patient has been counseled against excessive intake of caffeine, spicy foods, peppermint, and cinnamon - all of which can exacerbate esophageal reflux. The patient is to take medications as prescribed and call the office if the symptoms are not improving. 11/25/2017 Appointment: Kallie Sierra WPtel: [facility] New Patient 11/25/2017 Patient Education: Patient Medication Summary Completed 11/25/2017 Appointment: Kallie Sierra WPtel: [address] [facility] New Patient 07/03/2017 Referral: Rahul Referral Appointment Requested Instructions Comment prevnar . Medicare Exam - today we discussed the patients past history, immunizations, preventative exams/evaluations - colonoscopy, fecal occult blood testing, routine labs for renal function, glucose, cholesterol, osteoporosis evaluations, cardiovascular testing and cancer screenings. We have also discussed mental health and the signs/symptoms of depression. The patient was advised of home safety evaluations and the need to make sure that as the aging process continues, we need to be aware of different ways to make the home a safer place to reside. The patient has also been counseled that exercise is necessary - and of utmost importance as we age to help decrease fall risk and to maintain independence in the home. Today we discussed the need for the patient to create paperwork for Advanced directives as well as for the patient to provide this office with a copy of her DOPA paperwork for health care surrogate. stop lisinopril start on LOSARTAN 25mg daily Tonic Water - 4 ounces at bedtime take the augmentin 500mg three times daily x 7 days . Hypertension - uncontrolled - the patient's medications have been modified as documented in the visit note. The patient has been counseled to cut back on salt in diet for a no added salt diet, low fat diet, start an exercise program with low weight bearing exercises and higher aerobic activity for heart health. The patient is to check blood pressure readings as an outpatient and either fax , call, or email the readings to the office next week for practitioner to review. The pt is to call for acute concerns. Cough - stop lisinopril due to cough - start on losartan - call if cough not improved. Muscle spasms - use tonic water for prn muscle spasms. Bronchitis - acute case of bronchitis identified. Pt has been given antibiotics , breathing treatments as appropriate, and pt has been instructed to call if symptoms are not improved, or if symptoms acutely worsen. take the augmentin 500mg three times daily x 7 days Esophageal Reflux - the patient has been counseled against excessive intake of caffeine, spicy foods, peppermint, and cinnamon - all of which can exacerbate esophageal reflux. The patient is to take medications as prescribed and call the office if the symptoms are not improving. if you should have stomach upset/reflux symptoms - get some over the counter ZANTAC (generic name is RANITIDINE) - take 300mg at the onset of the symptoms. vitamin b12 2000mcg - liquid folic acid - 1mg daily vitamin d 2000 units daily. Tonic Water - 4 ounces at bedtime. Hypertension - well controlled - continue with current medications, continue with no added salt diet. Pt has been encouraged to exercise daily. The pt has been advised to call the office if there are any acute concerns about change in blood pressure readings at home. Muscle cramps at bedtime - recommended pt to start on tonic water at bedtime to see if this helps to decrease cramping of legs.
--- OUTSIDE RECORDS SUMMARY | 2018-02-17 08:46 | XMS REPORT | Continuity of Care Document ---
Author Author [facility] Organization [facility] Address Unknown Phone Unavailable Allergies Active Description Code Type Severity Reaction Onset Reported/Identified Relationship to Patient Clinical Status Yes Sulfa (Sulfonamide Antibiotics) [id number] Drug Allergy Unknown N/A 2013 Medications There is no data. Problems Date Dx Coded Attending Type Code Diagnosis Diagnosed By 04/12/2014 SCOTT MONTIEL MD Ot 813.42 FX DISTAL RADIUS NEC-CL 04/12/2014 SCOTT MONTIEL MD Ot 959.3 ELB/FOREARM/WRST INJ NOS 04/12/2014 SCOTT MONTIEL MD Ot E000.8 OTHER EXTERNAL CAUSE STATUS 04/12/2014 SCOTT MONTIEL MD Ot E885.9 FALL FROM SLIPPING, TRIPPING, OR STUMBLI 04/20/2014 SCOTT MONTIEL MD Ot 813.42 04/20/2014 SCOTT MONTIEL MD, Ot E000.8 04/20/2014 SCOTT MONTIEL MD Ot E928.9 05/18/2014 SCOTT MONTIEL MD Ot V57.1 05/18/2014 SCOTT MONTIEL MD Ot V58.43 06/02/2014 SCOTT MONTIEL MD Ot V57.1 06/02/2014 SCOTT MONTIEL MD Ot V58.43 06/02/2014 SCOTT MONTIEL MD Ot 813.42 06/02/2014 SCOTT MONTIEL MD Ot E000.8 06/02/2014 SCOTT MONTIEL MD, Ot E928.9 06/02/2014 SCOTT MONTIEL MD Ot V72.84 06/17/2014 SCOTT MONTIEL MD Ot V57.1 06/17/2014 SCOTT MONTIEL MD Ot V58.43 06/30/2014 SCOTT MONTIEL MD Ot 813.42 06/30/2014 SCOTT MONTIEL MD Ot E000.8 06/30/2014 SCOTT MONTIEL MD Ot E928.9 06/30/2014 SCOTT MONTIEL MD Ot V72.84 10/05/2014 SCOTT MONTIEL MD Ot 813.42 10/05/2014 SCOTT MONTIEL MD Ot E000.8 10/05/2014 SCOTT MONTIEL MD Ot E928.9 10/05/2014 SCOTT MONTIEL MD Ot V72.84 04/20/2015 SCOTT MONTIEL MD Ot 813.42 04/20/2015 SCOTT MONTIEL MD Ot E000.8 04/20/2015 SCOTT MONTIEL MD Ot E928.9 04/20/2015 SCOTT MONTIEL MD Ot V72.84 2015 SCOTT MONTIEL MD Ot 813.42 2015 SCOTT MONTIEL MD Ot E000.8 2015 SCOTT MONTIEL MD Ot E928.9 2015 SCOTT MONTIEL MD Ot V72.84 01/14/2018 SCOTT MONTIEL MD Ot 813.42 FX DISTAL RADIUS NEC-CL 01/14/2018 SCOTT MONTIEL MD Ot E000.8 OTHER EXTERNAL CAUSE STATUS 01/14/2018 SCOTT MONTIEL MD Ot E928.9 ACCIDENT NOS 01/14/2018 SCOTT MONTIEL MD Ot V72.84 EXAM PRE-OPERATIVE NOS 01/28/2018 SCOTT MONTIEL MD Ot 813.42 FX DISTAL RADIUS NEC-CL 01/28/2018 SCOTT MONTIEL MD Ot E000.8 OTHER EXTERNAL CAUSE STATUS 01/28/2018 SCOTT MONTIEL MD Ot E928.9 ACCIDENT NOS 01/28/2018 SCOTT MONTIEL MD Ot V72.84 EXAM PRE-OPERATIVE NOS 01/29/2018 VARGAS PELAEZ, OREN Lynch Ot Z01.818 ENCOUNTER FOR OTHER PREPROCEDURAL EXAMIN 02/11/2018 OREN KAYE MD Ot Z01.818 ENCOUNTER FOR OTHER PREPROCEDURAL EXAMIN 02/11/2018 OREN KAYE MD Ot Z01.818 ENCOUNTER FOR OTHER PREPROCEDURAL EXAMIN 02/12/2018 OREN KAYE MD Ot Z01.818 ENCOUNTER FOR OTHER PREPROCEDURAL EXAMIN Procedures There is no data. Results There is no data. Encounters ACCT No. Visit Date/Time Discharge Status Pt. Type Provider Facility Loc./Unit Complaint [id number] 02/11/2018 12:15:00 02/11/2018 12:35:00 DIS Outpatient OREN KAYE MD [facility] PREOP COLONOSCOPY [id number] 02/03/2018 11:00:00 02/03/2018 23:59:59 CLS Preadmit OREN KAYE MD [facility] ENDO SCREENING [id number] 06/02/2014 13:10:00 06/17/2014 15:21:00 DIS Outpatient SCOTT MONTIEL MD [facility] REHAB [id number] 04/19/2014 13:58:00 04/20/2014 08:55:00 DIS Outpatient SCOTT MONTIEL MD [facility] SDC [id number] 04/16/2014 15:22:00 04/16/2014 23:59:59 CLS Outpatient SCOTT MONTIEL MD [facility] PREOP LEFT DISTAL RADIUS FRACTURE [id number] 04/16/2014 16:13:00 04/16/2014 16:13:00 CAN Preadmit HOMER PEREZ APRN [facility] ER [id number] 04/12/2014 11:43:00 04/12/2014 15:23:00 DIS Emergency SCOTT MONTIEL MD [facility] ER FALL/LEFT WRIST INJURY [id number] 06/24/2017 15:02:04 06/24/2017 23:59:59 CLS Outpatient
[2018-02-17] MEDS ORDERED: NS IV 500 ML 500 ML ONE (08:55)
[2018-02-17 09:00] VITALS: BP 160/88
--- NOTE | 2018-02-17 09:01 | Conscious Sedation/ASA ---
Conscious Sedation Pre-Proced Time Reviewed: 09:01 ASA Class: 2 Airway Mallampati Classification: (native appropriate class) I. II. III, IV Lungs Heart ASA score ASA 1: a normal healthy patient ASA 2: a patient with a mild systemic disease (mid diabetes, controlled hypertension, obesity ASA 3: a patient with a severe systemic disease that limits activity (angina , COPD, prior Myocardial infarction) ASA 4: a patient with an incapacitating disease that is a constant threat to life (CHF, renal failure) ASA 5: a moribund patient not expected to survive 24 hrs. (ruptured aneurysm) ASA 6: a declared brain patient whose organs are being harvested. For emergent operations, add the letter E after the classification Grade 1 Sedation Plan: Discussed options with patient/fam Note The patient is an appropriate candidate to undergo the planned procedure, sedation, and anesthesia. The patient immediately re-assessed prior to indication. OREN KAYE MD Feb 17, 2018 09:01
--- NOTE | 2018-02-17 09:01 | History & Physicial ---
History of Present Illness History of Present Illness Reason for visit/HPI to undergo screening colonoscopy Date of Admission 02/17/18 Date Seen by a Provider: Feb 17, 2018 Time Seen by a Provider: 09:00 I consulted on this patient on 02/17/18 09:00 Attending Physician Oren Kay MD Admitting Physician Kallie Sierra MD Consult Allergies and Home Medications Allergies Coded Allergies: Sulfa (Sulfonamide Antibiotics) (Unverified Adverse Reaction, Unknown, ) Home Medications Losartan Potassium 25 Mg Tablet, 25 MG PO HS, (Reported) Tamsulosin HCl 0.4 Mg Cap.er.24h, 0.4 MG PO HS, (Reported) Patient Home Medication List Home Medication List Reviewed: Yes Past Eazowxu-Rymkcv-Liztxb Hx Patient Social History Recent Foreign Travel: No Contact w/other who traveled: No Seasonal Allergies Seasonal Allergies: No Cardiovascular Yes Hypertension Reproductive System Hx Reproductive Disorders: No Review of Systems Constitutional: no symptoms reported EENTM: no symptoms reported Cardiovascular: no symptoms reported Gastrointestinal: no symptoms reported Genitourinary: no symptoms reported Musculoskeletal: no symptoms reported Skin: no symptoms reported Psychiatric/Neurological: No Symptoms Reported Physical Exam Vital Signs Capillary Refill : Height, Weight, BMI Height: 5'10.00" Weight: 185lbs. oz. [id number]; BMI Method:Stated General Appearance: No Apparent Distress Respiratory: Lungs Clear Cardiovascular: Regular Rate, Rhythm Gastrointestinal: Non Tender, Soft Rectal: Deferred Neurologic/Psychiatric: Alert, Oriented x3 Skin: Warm/Dry Assessment/Plan Assessment and Plan gentleman to undergo screening colonoscopy. Discussed in detail. Admission Diagnosis Admission Status: Other (Outpt Proc) OREN KAY MD Feb 17, 2018 09:01
[2018-02-17] MEDS ORDERED: MIDAZOLAM 2 MG/2 ML (VERSED) VIAL ONE ×2 (09:19)
[2018-02-17] MEDS ORDERED: fentaNYL INJECTION 100 MCG/2 ML AMP ONE (09:19)
--- NOTE | 2018-02-17 09:57 | Endo Procedure Record ---
Endo Procedure Report Date of Procedure Last Colonoscopy: No Feb 17, 2018 Surgeon (s) OREN KAYE MD Post Procedure/Op Diagnosis 1 mm distal rectal polyp Procedure Performed colonoscopy to cecum Hot biopsy polypectomy Description of Procedure Anesthesia Type: Conscious Sedation Specimen(s) collected/removed rectal polyp Description of the Procedure Indication for the procedure: This gentleman came in for screening colonoscopy. He denies any relevant family history. Informed consent was obtained after reviewing the procedure in detail. Description of the procedure: He was placed in left lateral rectus position and his vital signs were monitored. Conscious sedation was achieved using Versed and fentanyl. Examination of the perianal area revealed external hemorrhoids. There was no fissure. Digital examination was unremarkable. The colonoscope was then introduced into the rectum and advanced all the way up to cecum The quality of bowel preparation was excellent. The scope was then withdrawn slowly and the mucosa examined in a systematic fashion. Findin mm polyp in the distal rectum, possibly hyperplastic in nature, that was excised with hot biopsy forceps. He tolerated the procedure well and was taken back to the nursing area in a stable condition. Impression: Screening colonoscopy. 1 mm rectal polyp excised. Recommend repeating in 5 years. Copy Copies To 1: TAMIA DAVEY MD, XAVIER M MD Feb 17, 2018 09:57
--- NOTE | 2018-02-17 09:58 | Discharge Inst-Simple/Standard ---
Discharge Inst-Standard Discharge Medications New, Converted or Re-Newed RX: Other Patient Instructions/Follow Up Plan of Care/Instructions/FU: repeat colonoscopy in 5 years Activity as Tolerated: Yes Discharge Diet: No Restrictions OREN KAYE MD Feb 17, 2018 09:58
[2018-02-17 10:30] VITALS: BP 122/60
[2018-02-17 11:00] VITALS: BP 152/84
[2018-02-17 11:15] VITALS: BP 152/84
== END 2018-02-17 11:15 | disposition home or self-care (01) ==
LOC: ENDO 08:41
PROVIDERS: ATTEND Surgery
DX: Z12.11 Encounter for screening for malignant neoplasm of colon (principal); K62.1 Rectal polyp; I10 Essential (primary) hypertension; Z79.899 Other long term (current) drug therapy
CPT/HCPCS: 88305

== ENCOUNTER → 2022-04-02 | Outpatient (CLI) | payer MEDICARE, MEDICAID ==
[~2022-04-02] MED LIST changes: +LOSA25TA41 PO; -LOSA25TA6 PO
--- NOTE | 2022-04-02 18:48 | Diagnostic Imaging Report ---
INDICATION: Peripheral vascular disease Arterial pressures are recorded in the brachial arteries and in both ankles. The right ankle-brachial index is 1.2. The left ankle-brachial index is 1.2. IMPRESSION: Normal bilateral ankle brachial indices. Dictated by: Dictated on workstation # [id number]
== END ==
LOC: RAD 12:00
PROVIDERS: ATTEND Nurse Practitioner Family
DX: I73.9 Peripheral vascular disease, unspecified (principal)
CPT/HCPCS: 93922

== ENCOUNTER → 2022-10-02 | Outpatient (CLI) | payer MEDICARE, MEDICAID ==
[~2022-10-02] VITALS: Ht 177 cm; Wt 88.0 kg
[~2022-10-02] MED LIST changes: +CATHETER FLUSH 10 ML SYR IVP PRN; +REGADENOSON 0.4 MG/5 ML SYR (LEXISCAN) IV ONE
[2022-10-02 11:17] VITALS: BP 146/78
[2022-10-02 11:22] VITALS: BP 134/65
--- NOTE | 2022-10-04 22:22 | STRESS TEST ---
DATE OF SERVICE: 10/02/2022 RESTING AND POST REGADENOSON TECHNETIUM-99M TETROFOSMIN SPECT CT IMAGING ORDERING PHYSICIAN: Breanna Parker APRN. PRIMARY PHYSICIAN: Dr. Sierra. CLINICAL DIAGNOSIS: Family history of coronary artery disease. Baseline images were carried out after injection of 11 mCi technetium-99m tetrofosmin. This was followed by 0.4 mg regadenoson and 32.9 mCi of technetium-99m tetrofosmin for stress imaging. The electrocardiogram showed sinus rhythm at baseline. It did not change significantly with the regadenoson infusion. He tolerated the procedure well. Review of images at rest and following stress does not indicate any significant perfusion defects consistent with any significant myocardial ischemia or infarction. Gated images show normal global left ventricular systolic function and normal regional wall motion. Left ventricular ejection fraction is calculated to be 74%. CONCLUSIONS: 1. No evidence of any significant myocardial ischemia or infarction on the study. 2. Normal regional wall motion. 3. Normal global left ventricular systolic function with a calculated ejection fraction of 74%. Job ID: [id number] DocumentID: [id number] Dictated Date: 10/04/2022 17:39:00 Time Study Technician Date: 10/04/2022 22:20:00 Dictated By: ANA JO MD; SUGEY; FACP; FACC;
== END ==
LOC: CARD 07:13
PROVIDERS: ATTEND Nurse Practitioner Family
DX: Z82.49 Family history of ischemic heart disease and other diseases of the circulatory system (principal)
CPT/HCPCS: 78452; 93017; A9502